=== PATIENT | male | born 1995 | race American Indian/Alaskan Native ===

== ENCOUNTER 2017-01-20 21:35 | Emergency (ER) | payer OTHER ==
[2017-01-21 06:28] VITALS: BP 111/74
[2017-01-21] MEDS ORDERED: TYLENOL PO ONE (07:29)
[2017-01-21] MEDS ORDERED: MOTRIN PO ONE (07:29)
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
== END 2017-01-21 08:13 | disposition home or self-care (01) ==
LOC: ED 21:35
DX: M54.2 Cervicalgia (principal); F17.200 Nicotine dependence, unspecified, uncomplicated; V49.49XA Driver injured in collision with other motor vehicles in traffic accident, initial encounter; Y92.488 Other paved roadways as the place of occurrence of the external cause; Y93.89 Activity, other specified; Y99.9 Unspecified external cause status
CPT/HCPCS: 99282